=== PATIENT | male | born 1945 | race Caucasian/White ===

== ENCOUNTER 2025-09-04 22:40 | Emergency (ER) | payer BC ==
[~2025-09-04] VITALS: Ht 188 cm; Wt 84.0 kg
--- NOTE | 2025-09-04 22:51 | Physician Documentation ---
History of Present Illness ~ Stated Complaint: FALL Time Seen by MD: 22:42 OK to notify your PCP?: Yes HPI 79-year-old male who presents with a fall and head injury. Per EMS, the patient arrives from home. His reported that he had drank 2 bottles of wine. He does drink wine normally every day with this is more than normal. He had a fall into hit the front of his forehead. Unknown loss of co nsciousness. Here in the ED, the patient denies any symptoms. He denies having a headache, neck pain, or other pain. He denies any injury to his arms or legs. He denies any nausea. His tetanus is up-to-date Review of Systems All Other Systems at this time: Reviewed and Negative Physical Exam Physical Exam General: This is a pleasant and alert elderly man, who arrives by EMS HEENT: The patient has a superficial abrasion of the central forehead measuring about 1 cm, no active bleeding Neck: No cervical spine tenderness on palpation, full range of motion without pain or limitation Heart: Mild tachycardic, appears regular Lungs: normal work of breathing, normal oxygen saturation on room air Extremities: Warm and well-perfused, no traumatic findings, full range of motion without pain or limitation Neuro: Alert and oriented, no focal weakness Psychiatric: Calm and cooperative with exam, appears likely intoxicated Progress Results/Orders Results/Orders Orders - SASHA WINSTON MD Ct Head (09/04/25 23:20) Cbc/Diff (09/04/25 22:47) Man Diff (09/04/25 22:49) Completed Orders - SASHA WINSTON MD Ct Head (09/04/25 23:20) CMP (09/04/25 22:47) Ethanol (09/04/25 22:47) Electrocardiogram (09/04/25 22:47) Vital Signs 09/04/25 09/04/25 22:49 22:56 Temp 98.5 Pulse 91 Resp 17 16 B/P (MAP) 119/60 Pulse Ox 96 Laboratory Tests Test 09/04/25 22:49 White Blood Count 4.0 L Red Blood Count 4.52 L Hemoglobin 14.6 Hematocrit 43.3 Mean Corpuscular Volume 95.9 Mean Corpuscular Hemoglobin 32.2 H Mean Corpuscular Hemoglobin Concent 33.6 Red Cell Distribution Width 13.9 Platelet Count 79 L Mean Platelet Volume 8.7 Neutrophils (%) (Auto) 54.8 Lymphocytes (%) (Auto) 26.4 Monocytes (%) (Auto) 16.6 H Eosinophils (%) (Auto) 1.1 Basophils (%) (Auto) 1.1 H Neutrophils # (Auto) 2.2 Lymphocytes # (Auto) 1.0 L Monocytes # (Auto) 0.7 Eosinophils # (Auto) 0.0 Basophils # (Auto) 0.0 CBC Comment Basophilic Stippling Sodium Level 138 Potassium Level 4.6 Chloride Level 102 Carbon Dioxide Level 24.6 Anion Gap 11 Blood Urea Nitrogen 23 H Creatinine 0.96 Estimated GFR/1.73 m2 75 BUN/Creatinine Ratio 24.0 H Glucose Level 203 H Calcium Level 8.3 L Total Bilirubin 0.4 Aspartate Amino Transf (AST/SGOT) 20 Alanine Aminotransferase (ALT/SGPT) 22 Alkaline Phosphatase 102 Total Protein 7.7 Albumin 3.8 Globulin 3.9 Albumin/Globulin Ratio 1.0 L Chemistry Comments Ethyl Alcohol Level 199 H EKG/XRAY/CT/US/VASC/MRI EKG : Additional Comment I personally interpreted the EKG and this shows: Sinus rhythm, rate 84, QTC 446, no STEMI CT : Impression I personally interpreted the CT scan, and this shows no intracranial hemorrhage Medical Decision Making Additional information obtaine: other Findings Reviewed EMS report Differential Dx:Considerations: Include: Closed head injury, Cervical spine injury, Skull facture, Fracture, Abrasion, Laceration, Intoxication-alcohol Additional Comment The patient presents with a fall and head injury in the setting of heavy alcohol use. On exam he does have a superficial laceration to his forehead, but no other findings to suggest a dangerous injury. He does appear mildly intoxicated and admits to alcohol use. EKG without dysrhythmia. Head CT without fracture or hemorrhage. Labs were unremarkable except for an elevated alcohol level as expected. Tetanus is up-to-date. His wound was cleaned and bandaged. Overall, this appears to be a fall related to alcohol use, no other dangerous cause identified. He will be discharged with home care instructions and return precautions. Departure Time of Disposition: 23:51 Disposition: 01 HOME / SELF CARE / HOMELESS Impression: Primary Impression: Forehead laceration Additional Impressions: Ground-level fall Alcohol intoxication Condition: Improved Discharge Instructions: Alcohol Intoxication Referrals: NO PRIMARY CARE PROVIDER (PCP) Education Educated: Patient Educated regarding: diagnosis, treatment, need for follow up Signature Scribe Signature: na Attestation: SASHA Rick MD Sep 04, 2025 22:51
[2025-09-04 23:00] LABS: MEAN PLATELET VOLUME 8.7 FL (7.4-10.4); RED CELL DISTRIBUTION WIDTH 13.9 % (11.5-14.5)
[2025-09-04 23:14] LABS: CREATININE 0.96 MG/DL (0.60-1.10); ETHANOL 199 MG/DL (<10); TOTAL CARBON DIOXIDE 24.6 MMOL/L (24-32); eCRCL 70 ML/MIN; eGFR 75 ML/MIN
--- NOTE | 2025-09-04 23:43 | ELECTROCARDIOGRAPH REPORT ---
[facility] Test Date: 2025-09-04 Test Time: 23:39:03 Pat Name: RODO ARREDONDO Department: [facility] Patient ID: [facility]-[id number] Room: Gender: M Pediatric Psychiatrist: : 1945 Requested By: SASHA WINSTON Order Number: [id number] Reading MD: Dr. Everardo Mcfadden Measurements Intervals [place] Rate: 84 P: 37 MS: 182 QRS: -33 QRSD: 103 T: 81 QT: 377 QTc: 446 Interpretive Statements Sinus rhythm Atrial premature complex Left axis deviation Electronically Signed On 09-07-2025 20:44:[address] Everardo Mcfadden Please click the below link to view image of tracing.
--- NOTE | 2025-09-04 23:46 | RADIOLOGY REPORT ---
CT CT HEAD INDICATION: Fall, head injury COMPARISON: None TECHNIQUE: CT of the head without intravenous contrast. RADIATION DOSE: CTDIvol: mGy, DLP: mGy*cm FINDINGS: No evidence of intracranial hemorrhage, acute infarct, mass effect, midline shift, herniation or hydrocephalus. 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 Mild ventricular enlargement related to mild cerebral volume loss. Small left middle cranial fossa arachnoid cyst. Mild mucosal thickening in left maxillary and right sphenoid sinuses; otherwise unremarkable. Mastoid air cells and middle ear cavities are clear. Soft tissues and osseous structures are unremarkable. IMPRESSION: No hemorrhage or other acute intracranial abnormality.
[2025-09-05 00:15] LABS: EOSINOPHILS % (MANUAL) 1.0 % (0-6); LYMPHOCYTES % (MANUAL) 23.0 % (21-51); MONOCYTES % (MANUAL) 15.0 % (2-12); NEUTROPHILS % (MANUAL) 61.0 % (42-75)
[2025-09-05 00:17] LABS: PLATELET ESTIMATE DECREASED
[2025-09-05 00:19] VITALS: BP 124/66; PULSE 91; RESP 17; TEMP 98.2; O2SAT 99
== END 2025-09-05 00:30 | disposition home or self-care (01) ==
LOC: ER 22:41
DX: S01.81XA Laceration without foreign body of other part of head, initial encounter (principal); F10.129 Alcohol abuse with intoxication, unspecified; I49.8 Other specified cardiac arrhythmias; Y90.9 Presence of alcohol in blood, level not specified; W18.30XA Fall on same level, unspecified, initial encounter; Y93.89 Activity, other specified; Y92.89 Other specified places as the place of occurrence of the external cause; Y99.8 Other external cause status
CPT/HCPCS: 70450; 80053; 80320; 85007; 85025; 93005; 99284